=== PATIENT | female | born 2000 | race Two or more races ===

== ENCOUNTER 2023-09-06 17:37 | Emergency (ER) | payer OTHER ==
[~2023-09-06] VITALS: Ht 154.9 cm; Wt 47.6 kg
[2023-09-06] MEDS ORDERED: WIXELA 100-501 EACH (19:08)
[2023-09-06] MEDS ORDERED: PROTONIX40 M1 PO (19:08)
[2023-09-06] MEDS ORDERED: FAMOTIDINE/PF 20 MG/2 ML VIAL IV ONE (19:45)
[2023-09-06] MEDS ORDERED: SUCRALFATE 1 G TABLET PO ONE (19:45)
[2023-09-06] MEDS ORDERED: 0.9 % SODIUM CHLORIDE 500 ML IV SCH (19:45)
[2023-09-06 20:20] LABS: HEMATOCRIT 41.3 % (36.0-45.00); HEMOGLOBIN 13.7 g/dL (12.0-15.00); MEAN CELL VOLUME 79.8 fL (80.00-100.00); MEAN CORPUSCULAR HEMOGLOBIN 26.5 pg (27.00-32.0); MEAN CORPUSCULAR HGB CONC 33.3 g/dl (32.0-36.0); PLATELET COUNT 324 K/uL (150-450); RED BLOOD COUNT 5.18 M/uL (4.00-6.00); RED CELL DISTRIBUTION WIDTH 14.5 % (11.5-14.5)
[2023-09-06 20:50] LABS: ALT/SGPT 17 U/L (12-78); ANION GAP 10 (10.0-20.0); AST/SGOT 16 U/L (15-37); BILIRUBIN TOTAL 0.83 mg/dL (0.3-1.2); BILIRUBIN,CONJUGATED < 0.10 mg/dL (0.0-0.2); BILIRUBIN,UNCONJUGATED 0.73 mg/dL (0.0-0.6); BLOOD UREA NITROGEN 11 mg/dL (7-18); BUN CREA RATIO 14 (7.0-25.0); CALCIUM 9.6 mg/dL (8.5-10.1); CARBON DIOXIDE 27 mEq/L (21-32); CHLORIDE 107 mmol/L (98-107); GFR 88.12; GLUCOSE FASTING 84 mg/dL (65-100); LIPASE 24 U/L (13-75); OSMOLALITY SERUM 280 MOSM/KG (275-295); SODIUM 141 mmol/L (136-145)
[2023-09-06 21:57] LABS: PH,URINE 5.5 (5.0-8.0); URINE APPEARANCE Turbid; URINE BILIRRUBIN Negative (NEGATIVE); URINE COLOR Yellow; URINE GLUCOSE Negative (NEGATIVE); URINE LEUKOCYTE Small; URINE NITRATE Negative; URINE PROTEIN Negative (NEGATIVE); URINE UROBILINOGEN 0.2 E.U./dl
[2023-09-06 22:05] LABS: URINE BACTERIA 1649.2 uL (0.0-1933); URINE EPITHELIAL CELLS 46.5 uL (0.0-38.8); URINE RBC 18.6 uL (0.0-20.8); URINE WBC 75.4 uL (0.0-23.2)
[2023-09-06 22:07] LABS: URINE BLOOD TRACE
[2023-09-06] MEDS ORDERED: PEPCID AC20 MG PO (22:17)
[2023-09-06] MEDS ORDERED: CARAFATE1 GM/10 ML PO (22:17)
== END 2023-09-06 22:22 | disposition home or self-care (01) ==
LOC: ER 17:38
PROVIDERS: General Practice
DX: K29.00 Acute gastritis without bleeding (principal); R10.9 Unspecified abdominal pain; Z91.013 Allergy to seafood; K20.80 Other esophagitis without bleeding